=== PATIENT | male | born 1955 | race Caucasian/White ===

== ENCOUNTER 2021-02-16 11:24 | Emergency (ER) | payer BC, MEDICAID ==
[~2021-02-16] VITALS: Ht 172.7 cm; Wt 90.7 kg
--- NOTE | 2021-02-16 11:36 | NUR ---
PT C/O SOB SINCE THIS MORNING. DENIES ENGAGING IN EXCERCISE, EXPOSURE TO IRRITANTS, OR ANY AGGRAVATING FACTORS PRIOR TO SOB. HX OF ASTHMA. OT UNABLE TO ANSWER FURTHER QUESTIONS, INCLUDING IF HE IS EXPERIENCING CHEST PAIN. PT IS SLEEPING, AROUSABLE BY TOUCH AND VOICE. A&OX4 WHEN AWAKE. ATTACHED TO MONITOR. O2 3L NASAL CANNULA. PULSE OX 100%, HR 91, 144/79 BP, RR 36. CONTINUING TO MONITOR PT.
--- NOTE | 2021-02-16 11:55 | NUR ---
SHOP WELDER AT BEDSIDE
--- NOTE | 2021-02-16 11:55 | NUR ---
BLOOD SAMPLE OBTAINED BY LAB
[2021-02-16] MEDS ORDERED: Magnesium 1GM/D5W 100ML PREMIX 200 ML IV ONE (12:00)
[2021-02-16] MEDS ORDERED: methylPREDNISolone SOD SUCC 125 MG/2ML VIAL IV ONE (12:00)
--- NOTE | 2021-02-16 12:04 | NUR ---
RADIOLOGY AT BEDSIDE
[2021-02-16] MEDS ORDERED: methylPREDNISolone SOD SUCC 125 MG/2ML VIAL ONE (12:07)
[2021-02-16] MEDS ORDERED: Magnesium 1GM/D5W 100ML PREMIX 100 ML IV ONE ×2 (12:08→12:13)
[2021-02-16 12:27] LABS: CALCIUM, SERUM 8.1 mg/dL (8.5-10.1); CREATININE 1.6 mg/dL (0.6-1.3); POTASSIUM 3.7 mmol/L (3.5-5.1)
[2021-02-16 12:40] LABS: ALBUMIN 2.8 g/dL (3.4-5.0); BILIRUBIN,DIRECT 0.1 mg/dL (0.0-0.2); BILIRUBIN,TOTAL 0.3 mg/dL (0.2-1.0); TOTAL PROTEIN, SERUM 6.8 g/dL (6.4-8.2)
[2021-02-16 12:55] LABS: BASOPHILS % (AUTO) 0.5 % (0.0-2.0); EOSINOPHILS % (AUTO) 0.9 % (0.0-6.0); HEMATOCRIT 43 % (39-51); HEMOGLOBIN 14.2 g/dL (13.5-17.5); LYMPHOCYTES # (AUTO) 1.1 K/uL (0.8-4.8); LYMPHOCYTES % (AUTO) 14.2 % (20.0-44.0); MEAN CORPUSCULAR HGB CONC 33 g/dl (31.0-36.0); MEAN CORPUSCULAR VOLUME 97 fL (80-96); MONOCYTES # (AUTO) 0.7 K/uL (0.1-1.30); MONOCYTES % (AUTO) 9.3 % (2.0-12.0); NEUTROPHILS # (AUTO) 5.8 K/uL (1.8-8.9); NEUTROPHILS % (AUTO) 75.1 % (43.0-81.0); PLATELET COUNT (AUTO) 138 K/uL (150-450); RED BLOOD CELL COUNT(AUTO) 4.42 MIL/uL (4.5-6.0); WHITE BLOOD COUNT (AUTO) 7.7 K/uL (4.3-11.0)
--- NOTE | 2021-02-16 13:00 | NUR ---
MOVE SHEET SUBMITTED.
[2021-02-16] MEDS ORDERED: FURO40TA5 PO (13:39)
[2021-02-16] MEDS ORDERED: ALBU18HF2 IH (13:39)
[2021-02-16] MEDS ORDERED: INSU100I34 SQ (13:39)
[2021-02-16] MEDS ORDERED: FLUT1BLS14 INH (13:39)
[2021-02-16] MEDS ORDERED: CARV3.122 PO (13:39)
[2021-02-16] MEDS ORDERED: ATOR40TA PO (13:39)
[2021-02-16] MEDS ORDERED: INSU100I26 SQ (13:39)
[2021-02-16] MEDS ORDERED: LOSA50TA39 PO (13:39)
[2021-02-16] MEDS ORDERED: SPIR25TA6 PO (13:40)
[2021-02-16] MEDS ORDERED: POLY15DR40 EACHEYE (13:41)
[2021-02-16] MEDS ORDERED: QUET300T2 PO (13:42)
[2021-02-16] MEDS ORDERED: ENOXAPARIN SODIUM 100 MG/ML DISP.SYRIN SQ ONE ×3 (14:30→15:00)
--- NOTE | 2021-02-16 16:10 | NUR ---
ELMER EMMANUEL FROM [facility] SPEAKING WITH DR. ARENAS
[2021-02-16] MEDS ORDERED: ASPIRIN 325 MG TABLET ONE (16:30)
[2021-02-16] MEDS ORDERED: NITROGLYCERIN PACKET 1 GM PACKET TOP ONE (16:30)
[2021-02-16] MEDS ORDERED: NITROGLYCERIN PACKET 1 GM PACKET ONE (16:30)
[2021-02-16] MEDS ORDERED: ASPIRIN 81 MG TAB.CHEW PO ONE (16:30)
--- NOTE | 2021-02-16 18:26 | NUR ---
RAUL CALLED FROM [facility] TRANSFER [place] [phone] PT ACCEPTED TO [facility] IN [place] UNDER [address] SERRANO ROOM #[id number]. PLEASE CALL [phone] FOR REPORT WILL CALL US BACK WITH TRANSPORT INFORMATION.
--- NOTE | 2021-02-16 18:42 | NUR ---
PT IS RESTING IN BED. NAD. WAITING FOR TRANSPORT. WILL REPORT TO MARISELA MARTINEZ.
--- NOTE | 2021-02-16 18:43 | NUR ---
recieved call. accepted at [facility] accepting dr sepulveda / going to bed 742. number for report [phone] acls transport eta 02/17/21 at 0900 will provide auth for acls transport. # [phone]
--- NOTE | 2021-02-16 19:39 | NUR ---
RECIEVED REPORT FOR TAMIKA. PT BREATHING EVEN AND UNLABORED RESTING WITH EYES CLOSED EASILY AROUSABLE. PT ON MONITOR AND PULSE OX V/S STABLE.
--- NOTE | 2021-02-16 20:04 | NUR ---
REPORT GIVEN TO DILLON
--- NOTE | 2021-02-16 21:03 | NUR ---
[facility] TRANSPO W/ [facility] IN 30-45 MIN
[2021-02-16 21:26] VITALS: BP 143/70
--- NOTE | 2021-02-16 21:26 | NUR ---
[facility] AT BED SIDE TO [employer] PROJECT MANAGER AND TRANSFER PT
--- NOTE | 2021-02-16 23:14 | NUR ---
CALLED [facility] [phone] AND INFORMED THEM RE PT'S TRANSFER
== END 2021-02-16 21:30 | disposition short-term general hospital (02) ==
LOC: ER 11:34
DX: I21.4 Non-ST elevation (NSTEMI) myocardial infarction (principal); R06.02 Shortness of breath; E11.65 Type 2 diabetes mellitus with hyperglycemia; Z79.4 Long term (current) use of insulin; Z20.822 Contact with and (suspected) exposure to COVID-19; Z95.0 Presence of cardiac pacemaker; Z88.0 Allergy status to penicillin; J44.9 Chronic obstructive pulmonary disease, unspecified
CPT/HCPCS: 36415; 71045; 80048; 80076; 83880; 84484 ×2; 85025; 87426; 93005 ×2; 96365; 96372; 96375; 99291; 99292; C9803; J1650; J2930; J3475 ×2

== ENCOUNTER 2021-07-29 01:09 | Emergency (ER) | payer BC, MEDICAID, OTHER ==
[~2021-07-29] VITALS: Ht 172.7 cm; Wt 86.2 kg
[~2021-07-29 01:09] MED LIST: ALBU18HF2 IH; ATOR40TA PO; CARV3.122 PO; FLUT1BLS14 INH; FURO40TA5 PO; INSU100I26 SQ; INSU100I34 SQ; LOSA50TA39 PO; POLY15DR40 EACHEYE; QUET300T2 PO; SPIR25TA6 PO
--- NOTE | 2021-07-29 01:35 | NUR ---
LEONARD FROM HOME FOR SOB. SATTING 67% AT THE SCENE. AT TRIAGE SATTING 95% ON ROOMAIR. PATIENT ALERT AND ORIENTED X3. AMBULATORY BUT BROUGHT IN BY STRETCHER. PATIENT IN BED 09 ON MONITOR AND POX. AWAITING MD BROWN.
--- NOTE | 2021-07-29 01:50 | NUR ---
LAC #18G S/L; PATENT AND INTACT. BLOOD COLLECTED AND SENT TO LAB
[2021-07-29 01:52] LABS: BASOPHILS % (AUTO) 0.4 % (0.0-2.0); EOSINOPHILS % (AUTO) 2.5 % (0.0-6.0); HEMATOCRIT 45 % (39-51); HEMOGLOBIN 14.9 g/dL (13.5-17.5); LYMPHOCYTES # (AUTO) 1.5 K/uL (0.8-4.8); LYMPHOCYTES % (AUTO) 22.9 % (20.0-44.0); MEAN CORPUSCULAR HGB CONC 33 g/dl (31.0-36.0); MEAN CORPUSCULAR VOLUME 96 fL (80-96); MONOCYTES # (AUTO) 0.5 K/uL (0.1-1.30); MONOCYTES % (AUTO) 8.2 % (2.0-12.0); NEUTROPHILS # (AUTO) 4.3 K/uL (1.8-8.9); PLATELET COUNT (AUTO) 142 K/uL (150-450); RED BLOOD CELL COUNT(AUTO) 4.66 MIL/uL (4.5-6.0); WHITE BLOOD COUNT (AUTO) 6.5 K/uL (4.3-11.0)
--- NOTE | 2021-07-29 01:57 | NUR ---
COVID ANTIGEN AND MRSA (NARE) SWAB COLLECTED AND SENT TO LAB
--- NOTE | 2021-07-29 02:02 | NUR ---
TRANSPORTATION WORKER AT PT'S BEDSIDE
[2021-07-29 02:24] LABS: ALANINE AMINOTRANSFERASE 38 U/L (12-78); ALBUMIN 3.1 g/dL (3.4-5.0); ALKALINE PHOSPHATASE 100 U/L (46-116); ASPARTATE AMINOTRANSFERASE 37 U/L (15-37); BILIRUBIN,DIRECT 0.1 mg/dL (0.0-0.2); BILIRUBIN,TOTAL 0.2 mg/dL (0.2-1.0); CALCIUM, SERUM 8.5 mg/dL (8.5-10.1); CARBON DIOXIDE 29 mmol/L (21-32); CHLORIDE 102 mmol/L (98-107); CREATININE 1.7 mg/dL (0.6-1.3); POTASSIUM 3.6 mmol/L (3.5-5.1); SODIUM SERUM 138 mmol/L (136-145); TOTAL PROTEIN, SERUM 6.8 g/dL (6.4-8.2); UREA NITROGEN, BLOOD 15 mg/dL (7-18)
[2021-07-29 02:27] LABS: GLUCOSE 444 mg/dL (74-106)
[2021-07-29] MEDS ORDERED: IV NS 0.9% 1,000 ML BAG IV ONE (02:30)
[2021-07-29] MEDS ORDERED: INSULIN REGULAR, HUMAN 100 UNIT/ML 10 ML VIAL IV ONE (02:30)
[2021-07-29] MEDS ORDERED: D5W IV ONE (03:00)
[2021-07-29] MEDS ORDERED: AZITHROMYCIN 500 MG in IV D5W 250 ML IV ONE (03:00)
[2021-07-29] MEDS ORDERED: GENTAMICIN IV ONE (03:00)
[2021-07-29] MEDS ORDERED: INSULIN REGULAR, HUMAN 100 UNIT/ML 10 ML VIAL ONE (03:06)
[2021-07-29] MEDS ORDERED: GENTAMICIN 80 MG/2 ML VIAL ONE (03:06)
[2021-07-29] MEDS ORDERED: AZITHROMYCIN 500 MG VIAL ONE (03:06)
--- NOTE | 2021-07-29 04:34 | NUR ---
CALL FROM [facility]. PT ACCEPTED AT [facility] BY DR RASCON. ROOM [id number]. # FOR REPORT [phone]. TRANSPORT ETA PENDING
--- NOTE | 2021-07-29 04:50 | NUR ---
REPORT GIVEN TO ZI MARTINEZ OF [facility] FOR [facility]
--- NOTE | 2021-07-29 04:50 | NUR ---
[facility] ETA 07
--- NOTE | 2021-07-29 07:39 | NUR ---
[facility] ARRIVE TO TRANSPORT PATIENT, REPORT GIVEN TO DELIVERY TABLE OPERATOR, PT BEING TRANSFERRED TO [facility] IN STABLE CONDITION.
[2021-07-29 07:41] VITALS: BP 132/75
== END 2021-07-29 07:43 | disposition short-term general hospital (02) ==
LOC: ER 01:15
DX: R55 Syncope and collapse (principal); J18.9 Pneumonia, unspecified organism; R09.02 Hypoxemia; I11.0 Hypertensive heart disease with heart failure; I50.9 Heart failure, unspecified; J45.909 Unspecified asthma, uncomplicated; R94.31 Abnormal electrocardiogram [ECG] [EKG]; E11.65 Type 2 diabetes mellitus with hyperglycemia; Z79.4 Long term (current) use of insulin; Z79.899 Other long term (current) drug therapy; Z20.822 Contact with and (suspected) exposure to COVID-19; Z88.0 Allergy status to penicillin; Z95.0 Presence of cardiac pacemaker
CPT/HCPCS: 36415; 71045; 80048; 80076; 82010; 82962; 83880; 84484; 85025; 85730; 87081; 87426; 93005; 96365; 96367; 96375; 99285; C9803; J0456; J1580; J1815; J7030; J7060 ×2

== ENCOUNTER 2021-08-27 12:24 | Emergency (ER) | payer BC ==
[~2021-08-27] VITALS: Ht 175.3 cm; Wt 89.8 kg
--- NOTE | 2021-08-27 12:45 | NUR ---
BIBS NEEDS INHALER REFILL AND NEBULIZER MACHINE. AMBULATORY, AAOX4. NOT IN DISTRESS
--- NOTE | 2021-08-27 12:50 | NUR ---
AT BED SIDE
[2021-08-27] MEDS ORDERED: ALBU18HF2 IH (13:39)
[2021-08-27] MEDS ORDERED: FLUT1BLS14 INH (13:39)
[2021-08-27 13:59] VITALS: BP 125/67
--- NOTE | 2021-08-27 13:59 | NUR ---
Patient discharged to home in stable condition. Written and verbal after care instructions given. Patient verbalizes understanding of instruction.
== END 2021-08-27 13:40 | disposition home or self-care (01) ==
LOC: ER 12:27
DX: J45.909 Unspecified asthma, uncomplicated (principal); Z76.0 Encounter for issue of repeat prescription; I10 Essential (primary) hypertension; E11.9 Type 2 diabetes mellitus without complications; F17.200 Nicotine dependence, unspecified, uncomplicated; Z95.0 Presence of cardiac pacemaker; Z88.0 Allergy status to penicillin; Z60.2 Problems related to living alone; Z79.899 Other long term (current) drug therapy; Z79.4 Long term (current) use of insulin

== ENCOUNTER 2021-09-20 01:08 | Emergency (ER) | payer BC ==
[~2021-09-20] VITALS: Ht 172.7 cm; Wt 88.9 kg
[2021-09-20 01:52] VITALS: BP 143/67
--- NOTE | 2021-09-20 01:52 | NUR ---
BIBSELF C/O LEFT FOOT PAIN AROUND HEEL AREA FOR THE PAST 2 WEEKS. DENIES TRAUMA LEADING UP TO INJURY. NO GROSS DEFORMITIES NOTED.PT AWAKE AND ALERT X4 V/S WNL
== END 2021-09-20 05:05 | disposition home or self-care (01) ==
LOC: ER 01:12
DX: M72.2 Plantar fascial fibromatosis (principal); I10 Essential (primary) hypertension; J45.909 Unspecified asthma, uncomplicated; E11.9 Type 2 diabetes mellitus without complications; F17.200 Nicotine dependence, unspecified, uncomplicated; Z88.0 Allergy status to penicillin; Z79.899 Other long term (current) drug therapy
CPT/HCPCS: 73630-TC